=== PATIENT | female | born 1960 | race Two or more races ===

== ENCOUNTER 2021-10-22 03:35 | Emergency (ER) | payer MEDICAID ==
[~2021-10-22] VITALS: Ht 162.6 cm; Wt 74.8 kg
[2021-10-22 07:13] VITALS: BP 138/86
[2021-10-22] MEDS ORDERED: ACETAMINOPHEN 325 MG TAB PO ONE (07:15)
[2021-10-22] MEDS ORDERED: CYCL-837 PO (07:33)
[2021-10-22] MEDS ORDERED: ACET-1158 PO (07:34)
== END 2021-10-22 11:14 | disposition home or self-care (01) ==
LOC: EDBD 03:35 → EDSEX 03:35 → ER 03:35
DX: S39.012A Strain of muscle, fascia and tendon of lower back, initial encounter (principal); S46.911A Strain of unspecified muscle, fascia and tendon at shoulder and upper arm level, right arm, initial encounter; S80.02XA Contusion of left knee, initial encounter; S80.01XA Contusion of right knee, initial encounter; I10 Essential (primary) hypertension; E11.9 Type 2 diabetes mellitus without complications; E78.5 Hyperlipidemia, unspecified; Z79.899 Other long term (current) drug therapy; V43.52XA Car driver injured in collision with other type car in traffic accident, initial encounter; Y93.89 Activity, other specified; Y92.410 Unspecified street and highway as the place of occurrence of the external cause; Y99.8 Other external cause status
CPT/HCPCS: 72100; 73030